=== PATIENT | male | born 1990 | race Caucasian/White ===

== ENCOUNTER 2020-05-14 07:00 | Outpatient (RCR) | payer OTHER, SELFPAY ==
--- NOTE | 2020-03-30 15:08 | HP.PTEVAL ---
Patient's Visit Information AZALEA SPEAR IV is a 30 year old M referred to Physical Therapy by Dr. Travis Reno MD with a diagnosis of Laceration of Lower leg, quad tendon repair. Date of Evaluation: 03/30/20 Physical Therapist: Leonid Bee DPT - Visit Plan Frequency: 2 Duration: 6 Plan: Start with ROM of L knee, focus on end ranges as tolerated. Add in strengthening as tolerated. Focus with increasing ROM initially. Add in inhibition of quad muscle as well. - Subjective Pt. is here today for his initial evaluation with diagnosis of R quad laceration with, quad tendon repair. He reports no pain at rest, but does have increased pain with squating and pain after sitting/standing for longer periods of time. Pt. denies N/T in either LE. Pt. reports overall doing well. He does not have any restrictions any more, but is to slwoly progress as tolerated. Pt. is back work, but only doing things that he feels comfortable doing. 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 pt. is hopeful to get back to all recreational acitivites including basketball and all work activities without limitaitons. - Pain L knee Pain Intensity (Out of 10): 0 Pain Intensity Range: 0, 6 Comment: increased with squating - Objective POSTURE: Pt. has good posture in stance. Pt. has normal knee positioning in stance. PALPATION: Pt. had normal healing incision, no signs of infection, no excessive scaring. NEURO: normal senstation thorughout bilateral LEs. ROM: L knee: 0-0-119deg. Pt. had tightness at end range flexion, mildly tender at end range extension. TIght HS bilaterally, tight hip flexor bilaterally. MMT: RLE- 5/5 throughout. LLE- ankle 5/5; knee- ext 4+/5, flexion 4/5; hip- 4+/5 throughout. Pt. has mild tenderness in quad with squating, ~75deg on fknee flexion iniates symptoms). GAIT: Pt. has good ambulation pattern, no issues iwth knee valgus/varus/genu vargum. He has normal step length and TKE during stance phase. STAIRS: slight increase in symptoms - Goals Goal 1:: LTG: Pt. to be I with HEP. Goal Time Frame: 4-6 Weeks Goal 2:: STG: pt. to have increased PROM of of L knee to 0-0-135deg. Goal Time Frame: 2-4 Weeks Goal 3:: LTG: Pt. to have AROM of L knee to 0-0-120deg. Goal Time Frame: 4-6 Weeks Goal 4:: LTG: Pt. to have 5/5 strength of LLE. Goal Time Frame: 4-6 Weeks Goal 5:: LTG: Pt. to have good squating mechanics without increase in symptoms. Goal Time Frame: 4-6 Weeks Goal 6:: LTG: Pt. to negotiate steps without increase in symptoms. Goal Time Frame: 4-6 Weeks - Rehabilitation Potential Physical Therapy Diagnosis: Pt. has signs and symptoms consistent with L quad laceration from chain saw with subsequent quad tendon repair. Pt. has subquent hypomobility of L knee mostly into flexion, but tender into extension. He has reduced strength of LLE as well. Pt. would benefit from increased ROM, strengthening and progression to functional/work related mobility. Rehabilitation Potential: Excellent - Anticipated Interventions Patient/Client Instruction: Educate patient on: Condition, Plan of Care, Risk Factors, Benefits of Fitness Program For the Purpose of:: To facilitate caregiver knowledge, To improve self management, To prevent re-injury, To improve ability to perform tasks related to life management, To improve tolerance to ADL's Therapeutic Exercise to Include: Strength training, Power training, Endurance training, Postural training, Flexibilty training, Passive ROM, Active ROM For the Purpose of:: To decrease pain, To decrease swelling/inflammation, To increase ROM, To improve nutrient delivery to tissue, To increase oxygenation perfusion, To improve muscle performance and motor function Manual Therapy Techniques to Include: Mobilization, Passive ROM For the Purpose of:: To decrease pain, To decrease swelling/inflammation, To increase ROM, To improve nutrient delivery to tissue, To improve muscle performance and motor function, To improve health of tissue, To decrease soft tissue restriction, To increase flexibility/ROM Thank you for the opportunity to evaluate your patient. For Medicare and Medicare HMO plans, please review the plan of care and approve it. It will need to be FAXED BACK to us at [phone] for Medicare purposes. For Medicare only, by signing this I certify the plan of care. Please let me know if there are questions or concerns regarding this plan of care. Physician Signature: Date:
--- NOTE | 2020-05-12 10:30 | HP.PTREVAL ---
Dr. Travis Reno MD, It has been my pleasure to treat AZALEA PSEAR IV over the last 9 visits for Laceration of Lower leg, quad tendon repair. Please see the progress note below for an update on the physical therapy plan of care! Subjective: Pt. reports I am doing pretty well. Pt. has been stretching without limitations. Overall he is doing well. Pt. 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 Objective/Function: ROM: Pt. has great ROM of his L knee. 0-0-138deg. Good HS length in 90/90. Pt. 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 Pt. has been progressing overall very well. He would like to get stronger with deep squating and be able to tolerate crouched positoning better for increased work tolerance. Plan Plan: Pt. to be seen 1x per week for 4 weeks to work on strengthening and tolerance to these work activities. Goals Goal 1:: LTG: Pt. to be I with HEP. Goal Time Frame: 4-6 Weeks Goal Progress: Goal Met Goal 2:: STG: pt. to have increased PROM of of L knee to 0-0-135deg. Goal Time Frame: 2-4 Weeks Goal Progress: Goal Met Goal 3:: LTG: Pt. to have AROM of L knee to 0-0-120deg. Goal Time Frame: 4-6 Weeks Goal Progress: Goal Met Goal 4:: LTG: Pt. to have 5/5 strength of LLE. Goal Time Frame: 4-6 Weeks Goal Progress: Progressing Goal 5:: LTG: Pt. to have good squating mechanics without increase in symptoms. Goal Time Frame: 4-6 Weeks Goal Progress: Progressing Goal 6:: LTG: Pt. to negotiate steps without increase in symptoms. Goal Time Frame: 4-6 Weeks Goal Progress: Goal Met Anticipated Interventions Patient/Client Instruction: Educate patient on: Condition, Plan of Care, Risk Factors, Benefits of Fitness Program For the Purpose of:: To facilitate caregiver knowledge, To improve self management, To prevent re-injury, To improve ability to perform tasks related to life management, To improve tolerance to ADL's Therapeutic Exercise to Include: Strength training, Power training, Endurance training, Postural training, Flexibilty training, Passive ROM, Active ROM For the Purpose of:: To decrease pain, To decrease swelling/inflammation, To increase ROM, To improve nutrient delivery to tissue, To increase oxygenation perfusion, To improve muscle performance and motor function Manual Therapy Techniques to Include: Mobilization, Passive ROM For the Purpose of:: To decrease pain, To decrease swelling/inflammation, To increase ROM, To improve nutrient delivery to tissue, To improve muscle performance and motor function, To improve health of tissue, To decrease soft tissue restriction, To increase flexibility/ROM Please do not hesitate to contact me at [phone] by phone or if you have questions or concerns regarding this new plan of care! Sincerely, SHANNAN DickinsonT
--- NOTE | 2020-05-28 11:00 | HP.PT.NRP ---
AZALEA Aida SPEAR IV was seen in my office for initial evaluation on 03/30/20. The following Plan of Care was established for this patient: Initial Frequency: 2 Initial Duration: 6 Patient/Client Instruction: Educate patient on: Condition, Plan of Care, Risk Factors, Benefits of Fitness Program For the Purpose of:: To facilitate caregiver knowledge, To improve self management, To prevent re-injury, To improve ability to perform tasks related to life management, To improve tolerance to ADL's Therapeutic Exercise to Include: Strength training, Power training, Endurance training, Postural training, Flexibilty training, Passive ROM, Active ROM For the Purpose of:: To decrease pain, To decrease swelling/inflammation, To increase ROM, To improve nutrient delivery to tissue, To increase oxygenation perfusion, To improve muscle performance and motor function Manual Therapy Techniques to Include: Mobilization, Passive ROM For the Purpose of:: To decrease pain, To decrease swelling/inflammation, To increase ROM, To improve nutrient delivery to tissue, To improve muscle performance and motor function, To improve health of tissue, To decrease soft tissue restriction, To increase flexibility/ROM This patient was last seen in our office 05/14/20. Pertinent comments regarding their Physical therapy will appear below: Pt. was seen for his quad tendon repair. He did very well with PT and was back to work without limitations. At our last visit he had great/full ROM without limitations. 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 Other than that he had good strength and ROM. He has not come back to PT in 2 weeks and will be DC back to physician at this point in time. At this point I will be discontinuing this patient from physical therapy. I would be happy to see this patient again in the future if found appropriate by the physician. Thank you! Leonid Bee, MADDI
== END 2020-05-14 19:00 | disposition home or self-care (01) ==
LOC: PT 07:00
DX: S81.812D Laceration without foreign body, left lower leg, subsequent encounter (principal)
CPT/HCPCS: 97110; 97161; 97530